=== PATIENT | female | born 1965 | race Caucasian/White ===

== ENCOUNTER → 2016-08-25 | Outpatient (CLI) | payer BC ==
--- NOTE | 2016-08-25 09:32 | WOMENS IMAGING REPORT ---
EXAM DESCRIPTION: BILAT SCREENING MAMMO W/CAD COMPLETED DATE/TIME: 08/25/2016 7:28 am REASON FOR STUDY: Z12.31, ROUTINE SCREENING MAMMO Z12.31 ENCNTR SCREEN MAMMOGRAM FOR MALIGNANT NEOP LASM OF PILO COMPARISON: Multiple since 2007 TECHNIQUE: Standard craniocaudal and mediolateral oblique views of each breast recorded using [employer] l acquisition. LIMITATIONS: None. FINDINGS: RIGHT BREAST MASSES: On the right breast CC view only, lateral to the nipple about 8 cm from the nipple, there is a mass versus superimposed shadows which requires further evaluation with right breast diagnostic ildefonso osynthesis in the craniocaudad and 90 mediolateral orientations, and cone compression in the CC and 90 mediolateral orientations. If this persists, then ultrasound would be required for followup. CALCIFICATIONS: No new or suspicious calcifications. ARCHITECTURAL DISTORTION: None. DEVELOPING DENSITY: None. ASYMMETRY: None noted. OTHER: No other significant findings. LEFT BREAST MASSES: No suspicious masses. CALCIFICATIONS: No new or suspicious calcifications. ARCHITECTURAL DISTORTION: None. DEVELOPING DENSITY: None. ASYMMETRY: None noted. OTHER: No other significant findings. Read with the assistance of CAD. .[facility] - R2 Cenova Version 1.3 .[facility] - R2 Cenova Version 1.3 .[facility] - R2 Cenova Version 2.4 .[facility] [place] - R2 Cenova Version 2.4 .[facility] - R2 Carpet Yarn Winder Operator Version 9.2 IMPRESSION: Right breast CC view only, nodule versus superimposed shadows for which diagnostic tomos ynthesis, and left breast diagnostic ultrasound is recommended No mammographic evidence for malignancy left breast BREAST DENSITY: b. There are scattered areas of fibroglandular density. BIRAD: 0 Incomplete: Needs Additional Imaging Evaluation and/or prior Mammograms for Comparison. RECOMMENDATION: RECOMMENDED FOLLOW-UP: Right breast diagnostic tomosynthesis and ultrasound The patient will be contacted for additional imaging. COMMENT: The patient has been notified of the results by letter per MQSA requirements. Additional no tification policies are in place for contacting patient with suspicious or incomplete findings. Quality ID #[id number]: The [employer] recommends an annual screening mammogram for women aged 40 years or over. This facility utilizes a reminder system to ensure that all patients receive reminder letters, and/or direct phone calls for appointments. This includes reminders for routine scr eening mammograms, diagnostic mammograms, or other Breast Imaging Interventions when appropriate. Th is patient will be placed in the appropriate reminder system. The [employer] (ACR) has developed recommendations for screening MRI of the breast s in certain patient populations, to be used in conjunction with mammography. Breast MRI surveillanc e may be appropriate for women with more than 20% lifetime risk of developing breast cancer as deter mined by genetic testing, significant family history of the disease, or history of mantle radiation f or Hodgkins Disease. ACR Practice Guidelines 2008. TECHNICAL DOCUMENTATION: FINDING NUMBER: (1) ASSESSMENT: (1) JOB ID: [id number] [employer]- All Rights Reserved
== END ==
LOC: WI 08:04
PROVIDERS: ATTEND Specialist
DX: Z12.31 Encounter for screening mammogram for malignant neoplasm of breast (principal); R92.8 Other abnormal and inconclusive findings on diagnostic imaging of breast
CPT/HCPCS: 77067; G0202

== ENCOUNTER → 2016-09-10 | Outpatient (CLI) | payer BC ==
--- NOTE | 2016-09-10 17:15 | WOMENS IMAGING REPORT ---
EXAM DESCRIPTION: 3D DX MAMMO RIGHT UNILAT COMPLETED DATE/TIME: 09/10/2016 9:46 am REASON FOR STUDY: N63, BREAST LUMP N63 UNSPECIFIED LUMP IN BREAST COMPARISON: Multiple since 2007 TECHNIQUE: Exaggerated craniocaudal and 90 oblique images of the breast recorded using digital acqu isition, right breast 90 mediolateral, MLO, X CC tomosynthesis. LIMITATIONS: None. FINDINGS: BREAST: Right MASSES: No suspicious masses. Findings described on screening exam 08/25/2016 are superimposed shadow s. CALCIFICATIONS: No new or suspicious calcifications. ARCHITECTURAL DISTORTION: None. DEVELOPING DENSITY: None. ASYMMETRY: None noted. OTHER: No other significant findings. Read with the assistance of CAD. .[facility] - R2 Cenova Version 1.3 .[facility] Imaging - R2 Cenova Version 1.3 .[facility] - R2 Cenova Version 2.4 .[facility] [place] - R2 Cenova Version 2.4 .[facility] - R2 Manager Corporate Responsibility Version 9.2 IMPRESSION: No mammographic/ tomosynthesis evidence for malignancy right breast BREAST DENSITY: b. There are scattered areas of fibroglandular density. BIRAD: 1 Negative. RECOMMENDATION: RECOMMENDED FOLLOW UP: Please continue yearly bilateral screening mammography in Jul. Consider bilateral screening tomosynthesis. SPECIFIC INTERVENTION/IMAGING/CONSULTATION RECOMMENDED:No additional intervention/ imaging/consultati on needed at this time. COMMUNICATION:Patient notified by letter COMMENT: The patient has been notified of the results by letter per SA requirements. Additional no tification policies are in place for contacting patient with suspicious or incomplete findings. Quality ID #[id number]: The [employer] recommends an annual screening mammogram for women aged 40 years or over. This facility utilizes a reminder system to ensure that all patients receive reminder letters, and/or direct phone calls for appointments. This includes reminders for routine scr eening mammograms, diagnostic mammograms, or other Breast Imaging Interventions when appropriate. Th is patient will be placed in the appropriate reminder system. The [employer] (ACR) has developed recommendations for screening MRI of the breast s in certain patient populations, to be used in conjunction with mammography. Breast MRI surveillanc e may be appropriate for women with more than 20% lifetime risk of developing breast cancer as deter mined by genetic testing, significant family history of the disease, or history of mantle radiation f or Hodgkins Disease. ACR Practice Guidelines 2008. DBT Technology DBT is a type of tomographic mammography. With conventional mammography, overlapping breast tissue ma y make lesions difficult to detect, even with good compression. DBT uses an x-ray tube that rotates a round the breast, taking images at different angles. These images are then combined to create thin sl ices of the breast that the radiologist can view as a 3D reconstruction. The [employer] unit can perform full-field digital mammograms (2D imaging); or DBT (3D imaging); or both, in a combination mode that quickly performs both the mammogram and the tomosynthesis scan while the breast is still compressed. PQRS 6045F: Fluoroscopic imaging is not utilized for breast tomosynthesis. TECHNICAL DOCUMENTATION: FINDING NUMBER: (1) ASSESSMENT: (1) JOB ID: [id number] [email or web address]- All Rights Reserved
== END ==
LOC: WI 13:08
PROVIDERS: ATTEND Specialist
DX: N63 Unspecified lump in breast (principal)
CPT/HCPCS: 77061; G0206

== ENCOUNTER → 2017-09-21 | Outpatient (CLI) | payer BC ==
--- NOTE | 2017-09-21 09:36 | WOMENS IMAGING REPORT ---
EXAM DESCRIPTION: 3D SCREENING MAMMO BILAT COMPLETED DATE/TIME: 09/21/2017 7:38 am REASON FOR STUDY: SCREENING MAMMO Z12.31 ENCNTR SCREEN MAMMOGRAM FOR MALIGNANT NEOPLASM OF PILO COMPARISON: August 2016 and May 2015 TECHNIQUE: Standard craniocaudal and mediolateral oblique views of each breast recorded using digita l acquisition and breast tomosynthesis. LIMITATIONS: None. FINDINGS: No masses, calcifications or architectural distortion. No areas of suspicion. Read with the assistance of CAD. .[facility] - R2 Cenova Version 1.3 .[facility] - R2 Cenova Version 1.3 .[facility] - R2 Cenova Version 2.4 .[facility] R2 Cenova Version 2.4 .[facility] - R2 Gripper Machine Operator Version 9.2 IMPRESSION: NORMAL MAMMOGRAM. BIRADS 1. BREAST DENSITY: b. There are scattered areas of fibroglandular density. BIRAD: 1 NEGATIVE RECOMMENDATION: ROUTINE SCREENING COMMENT: The patient has been notified of the results by letter per SA requirements. Additional no tification policies are in place for contacting patient with suspicious or incomplete findings. Quality ID #[id number]: The [employer] recommends an annual screening mammogram for women aged 40 years or over. This facility utilizes a reminder system to ensure that all patients receive reminder letters, and/or direct phone calls for appointments. This includes reminders for routine scr eening mammograms, diagnostic mammograms, or other Breast Imaging Interventions when appropriate. Th is patient will be placed in the appropriate reminder system. The [employer] (ACR) has developed recommendations for screening MRI of the breast s in certain patient populations, to be used in conjunction with mammography. Breast MRI surveillanc e may be appropriate for women with more than 20% lifetime risk of developing breast cancer as deter mined by genetic testing, significant family history of the disease, or history of mantle radiation f or Hodgkins Disease. ACR Practice Guidelines 2008. DBT Technology DBT is a type of tomographic mammography. With conventional mammography, overlapping breast tissue ma y make lesions difficult to detect, even with good compression. DBT uses an x-ray tube that rotates a round the breast, taking images at different angles. These images are then combined to create thin sl ices of the breast that the radiologist can view as a 3D reconstruction. The [employer] unit can perform full-field digital mammograms (2D imaging); or DBT (3D imaging); or both, in a combination mode that quickly performs both the mammogram and the tomosynthesis scan while the breast is still compressed. PQRS 6045F: Fluoroscopic imaging is not utilized for breast tomosynthesis. TECHNICAL DOCUMENTATION: FINDING NUMBER: (1) ASSESSMENT: (1) JOB ID: [id number] [employer]- All Rights Reserved Reading location - IP/workstation name: [facility]
== END ==
LOC: WI 07:25
PROVIDERS: ATTEND Specialist
DX: Z12.31 Encounter for screening mammogram for malignant neoplasm of breast (principal)
CPT/HCPCS: 77063; 77067

== ENCOUNTER → 2019-01-03 | Outpatient (CLI) | payer BC ==
--- NOTE | 2019-01-03 15:50 | WOMENS IMAGING REPORT ---
EXAM DESCRIPTION: 3D SCREENING MAMMO BILAT COMPLETED DATE/TIME: 01/03/2019 2:42 pm REASON FOR STUDY: Z12.31 SCREENING MAMMO Z12.31 ENCNTR SCREEN MAMMOGRAM FOR MALIGNANT NEOPLASM OF B RE COMPARISON: [id number] EXAM PARAMETERS: Standard craniocaudal and mediolateral oblique views of each breast recorded using digital acquisition and breast tomosynthesis. Read with the assistance of CAD. .[facility] - [employer] Specialty Sales Representative Version 9.2 LIMITATIONS: None. FINDINGS: Findings present which are benign by mammographic criteria. No suspicious masses, calcific ations or architectural distortion. Pertinent benign findings: Fibrocystic change. Benign mammographic findings may include one or more of the following: Smooth masses, popcorn/rim/coa rse calcifications, asymmetries, post-procedure changes, and lesions with long-standing stability. IMPRESSION: BENIGN MAMMOGRAPHIC FINDINGS. BIRADS 2 BREAST DENSITY: b. There are scattered areas of fibroglandular density. BIRAD: ASSESSMENT: 2 BENIGN FINDING(S) RECOMMENDATION: ROUTINE SCREENING COMMENT: The patient has been notified of the results by letter per SA requirements. Additional no tification policies are in place for contacting patient with suspicious or incomplete findings. Quality ID #[id number]: The [employer] recommends an annual screening mammogram for women aged 40 years or over. This facility utilizes a reminder system to ensure that all patients receive reminder letters, and/or direct phone calls for appointments. This includes reminders for routine scr eening mammograms, diagnostic mammograms, or other Breast Imaging Interventions when appropriate. Th is patient will be placed in the appropriate reminder system. TECHNICAL DOCUMENTATION: FINDING NUMBER: (1) ASSESSMENT: (1) JOB ID: [id number] [employer]- All Rights Reserved Reading location - IP/workstation name: [email or web address]
== END ==
LOC: WI 13:40
PROVIDERS: ATTEND Specialist
DX: Z12.31 Encounter for screening mammogram for malignant neoplasm of breast (principal)
CPT/HCPCS: 77063; 77067

== ENCOUNTER → 2020-01-08 | Outpatient (CLI) | payer BC ==
--- NOTE | 2020-01-08 15:33 | WOMENS IMAGING REPORT ---
EXAM DESCRIPTION: 3D SCREENING MAMMO BILAT IMAGES COMPLETED DATE/TIME: 01/08/2020 3:00 pm REASON FOR STUDY: Z12.31 ENCOUNTER FOR SCREENING MAMMOGRAM FOR MALIGNANT NEOPLASM OF BREAST Z12.31 ENCNTR SCREEN MAMMOGRAM FOR MALIGNANT NEOPLASM OF PILO COMPARISON: Priors back to 2013 EXAM PARAMETERS: Standard craniocaudal and mediolateral oblique views of each breast recorded using digital acquisition and breast tomosynthesis. Read with the assistance of CAD. .[facility] - R2 Fire Engine Operator Version 9.2 LIMITATIONS: None. FINDINGS: RIGHT BREAST MASSES: Small mass 12 o'clock about 3 cm deep to the nipple. CALCIFICATIONS: No new or suspicious calcifications. ARCHITECTURAL DISTORTION: None. ASYMMETRY: None noted. OTHER: No other significant findings. LEFT BREAST MASSES: No suspicious masses. CALCIFICATIONS: No new or suspicious calcifications. ARCHITECTURAL DISTORTION: None. ASYMMETRY: None noted. OTHER: No other significant findings. IMPRESSION: Small mass right breast. 0 Incomplete: Needs Additional Imaging Evaluation and/or prior Mammograms for Comparison. BREAST DENSITY: b. There are scattered areas of fibroglandular density. BIRAD: ASSESSMENT: 0 Incomplete: Needs Additional Imaging Evaluation and/or prior Mammograms for C omparison. RECOMMENDATION: RECOMMENDED FOLLOW-UP: Cone compression views and potential ultrasound right breast. The patient will be contacted for additional imaging. COMMENT: The patient has been notified of the results by letter per MQSA requirements. Additional no tification policies are in place for contacting patient with suspicious or incomplete findings. Quality ID #[id number]: The [employer] recommends an annual screening mammogram for women aged 40 years or over. This facility utilizes a reminder system to ensure that all patients receive reminder letters, and/or direct phone calls for appointments. This includes reminders for routine scr eening mammograms, diagnostic mammograms, or other Breast Imaging Interventions when appropriate. Th is patient will be placed in the appropriate reminder system. TECHNICAL DOCUMENTATION: FINDING NUMBER: (1) ASSESSMENT: (1) JOB ID: [id number] 2010 [employer]- All Rights Reserved Reading location - IP/workstation name: [email or web address]
== END ==
LOC: WI 14:40
PROVIDERS: ATTEND Specialist
DX: Z12.31 Encounter for screening mammogram for malignant neoplasm of breast (principal); N63.12 Unspecified lump in the right breast, upper inner quadrant
CPT/HCPCS: 77063; 77067

== ENCOUNTER → 2020-01-10 | Outpatient (CLI) | payer BC ==
--- NOTE | 2020-01-10 10:40 | WOMENS IMAGING REPORT ---
EXAM DESCRIPTION: RIGHT DIAGNOSTIC MAMMO W/CAD; U/S BREAST UNILAT LIMITED IMAGES COMPLETED DATE/TIME: 01/10/2020 10:05 am; 01/10/2020 10:28 am REASON FOR STUDY: N63.0 UNSPECIFIED LUMP IN UNSPECIFIED BREAST; RT BREAST MASS N63.0 UNSPECIFIED [place] MP IN UNSPECIFIED BREAST COMPARISON: 01/08/2020 EXAM PARAMETERS: True lateral and cone compression views. LIMITATIONS: None. FINDINGS: BREAST LATERALITY: right MASSES: Small mass at 12 o'clock persists with cone compression. CALCIFICATIONS: No new or suspicious calcifications. ARCHITECTURAL DISTORTION: None. ASYMMETRY: None noted. OTHER: No other significant findings. Ultrasound demonstrates 4 mm cyst corresponding to the mammographic finding. IMPRESSION: Benign findings. BREAST DENSITY: b. There are scattered areas of fibroglandular density. BIRAD: ASSESSMENT: 2 Benign findings. RECOMMENDATION: RECOMMENDED FOLLOW UP: Birads 1 or 2: The patient should resume routine screening . SPECIFIC INTERVENTION/IMAGING/CONSULTATION RECOMMENDED:No additional intervention/ imaging/consultati on needed at this time. COMMUNICATION:The imaging findings were not discussed with the patient. Her referring provider has be en notified of the findings. COMMENT: The patient has been notified of the results by letter per SA requirements. Additional no tification policies are in place for contacting patient with suspicious or incomplete findings. Quality ID #225: The [employer] recommends an annual screening mammogram for women aged 40 years or over. This facility utilizes a reminder system to ensure that all patients receive reminder letters, and/or direct phone calls for appointments. This includes reminders for routine scr eening mammograms, diagnostic mammograms, or other Breast Imaging Interventions when appropriate. Th is patient will be placed in the appropriate reminder system. TECHNICAL DOCUMENTATION: FINDING NUMBER: (1) ASSESSMENT: (1) JOB ID: [id number] 2010 [employer]- All Rights Reserved Reading location - IP/workstation name: [email or web address]
--- OUTSIDE RECORDS SUMMARY | 2020-01-11 15:13 | XMS REPORT ---
:1965 Author Organization [facility] Address [facility] [place] [address] [place] [address] Care Team Providers Name Role Phone Saul Lopez Primary Care Physician Unavailable John REYNA Attending Clinician Unavailable Allergies, Adverse Reactions, Alerts Allergy Name Allergy Status Severity Reaction(s) Onset Inactive Treat ing Comments Type Date Date Clinician Codeine Codeine Active Derivatives Derivatives Iodine SOLN Iodine SOLN Active Pseudoephedr Pseudoephed Active ine HCl TABS rine HCl TABS Sulfa Drugs Sulfa Drugs Active Medications Ordered Filled Start Stop Current Ordering Indication Dosage Frequency Signature Comments Components Medication Medication Date Date Medication? Clinician (SIG) Name Name Amitriptyli Yes Beni Amitriptyl ne HCl - 10 7-14 John REYNA ine HCl - MG Oral 00:00: 10 MG Oral Tablet 00 Tablet TAKE 1-3 TABLETS AT BEDTIME INSTRUCTED - for headache prevention Quantity: 90 Refills: 5 Beni Lopez MD Start : 0Active Famotidine 2018-02 Yes Beni Famotidine 20 MG Oral 03-28 John REYNA 20 MG Oral Tablet 00:00: Tablet 00 TAKE 1 TABLET twice a day as needed for heartburn Quantity: 60 Refills: 11 Beni Lopez MD Start : 9Active Aspirin 2017-02 No Aspirin Adult Low - Adult Low Strength 81 00:00: Strength MG Oral 00 81 MG Oral Tablet Tablet Chewable Chewable Refills: 0 Start : 8Active Probiotic 2017-02 No Probiotic Oral 03-27 Oral Capsule 00:00: Capsule 00 Refills: 0 Start : 8Active Vitamin 2017-02 No Vitamin B-12 1000 03-27 B-12 1000 MCG Oral 00:00: MCG Oral Tablet 00 Tablet Refills: 0 Start : 8Active Clobetasol 2015-02 No Clobetasol Propionate -15 Propionate 0.05 % 00:00: 0.05 % External 00 External Cream Cream USE ONE applicatio n TO affected AREA TWICE DAILY Quantity: 60 Refills: 0 Start : 6Active Fiber Yes Isabelle Raines Fiber Therapy - Darlyn REYNA Therapy 58.6 % POWD 00:00: 58.6 % 00 POWD USE DIRECTED. Quantity: 1 Refills: 0 Isabelle Santizo MD Start : 5Active Albuterol Yes Beni Q0.25D Albuterol Sulfate HFA 4-17 John REYNA Sulfate 108 (90 00:00: HFA 108 Base) 00 (90 Base) MCG/ACT MCG/ACT Inhalation Inhalation Aerosol Aerosol Solution Solution INHALE 2 PUFFS FOUR TIMES DAILY DIRECTED. Quantity: 1 Refills: 2 Beni Lopez MD Start : 3Active 8.5 GM Inhaler Ibuprofen 2009-02 No Trevon Hodgson Ibuprofen 800 MG Oral 03-28 David REYNA 800 MG Tablet 00:00: Oral 00 Tablet TAKE 1 TABLET 3 TIMES DAILY NEEDED. 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, mild COPD, mild Problem Active Chronic Chronic Problem Active headache headache History of History of Problem Resolve melanoma in melanoma in d situ situ Exposure to Exposure to Problem Active COVID-19 COVID-19 virus virus Procedures Procedure Date / Time Performed Performing Clinician Camille Huston CoVID-19 2019-09-18 00:00:00 CT - Maxillofacial (SINUSES) 2019-09-11 00:00:00 without IV Contrast L - ENT Vitamin D, 25-Hydroxy 2019-08-21 00:00:00 History of Breast biopsy History of Weems's neuroma excision History of Hysterectomy History of Rotator cuff repair History of Excision melanoma Results Test Description Test Time Test Comments Text Results Atomic Results Result Comments CT - Maxillofacial 2019-09-25 15:46:00 ORDERING PROVID ER: Beni (SINUSES) without IV HarrisPERFORMING LOC ATION: Contrast [facility] PhysiciansEX[facility] DESCRIPTION: CT - Maxillofa marlee (SINUSES) without IV Contras tIMAGES COMPLETED DATE/TIME: 020 3:46 pmREASON FOR STUDY: R51Chr onic headacheCOMPARISON: None.TE CHNIQUE: Noncontrast scanning throug h the paranasal sinuses using bone algorithm. Reconstructed M FL images reviewed. All images stored on PACS. Images acquired fo r image guided surgery.All CT scanne rs at this facility use dose modul ation, iterative reconstruction, an d/or weight based dosing when nisreen ropriate to reduce radiation dose to as low as reasonably achievable (ALARA).[facility]: Dose Right [facility]: CareDose [facility]: Dose Right [facility]: Teradose 4D [facility]: Smart TechnologiesRADIATION DOSE: mGy.FINDINGS: NASAL PASSAGE S: Clear. No polyps or masses.OSTEOMEATAL UNITS AND NASOFRONTAL DUCTS: Patent. N o agger nasi or Donna cells.MAXILLA RY SINUSES: Well-pneumatized an d clear. Maxillary sinus outlets are patent.ETHMOID SINUSES: Well-pneumatized and clear.S PHENOID SINUSES: Well-pneumatized an d clear. No sphenoethmoid air cells o r pneumatized pterygoid recess . No pneumatized dorsal sella.FRO NTAL SINUSES: Well-pneumatized an d clear.MASTOID AIR CELLS: Clear.ORBITS: Normal and symmetrical.NASAL SEPTUM: De viation to the right No nasal septal spurs.TEMPOROMANDIBULAR JOIN TS: Normal.TURBINATES: Pneumati zed and enlarged left middle turbinn ate wall. Minimal pneumatizatio n of the right middle turbinate.MUCOPERIOSTEAL THI CKENING: No.MUCOCELE: No.OTHER: No other significant findings.IMPRESS ION: PNEUMATIZATION OF THE MIDDLE TURBINATES -LEFT GREATER JACKSON N RIGHT. SEE ABOVE DISCUSSION. SEPT AL DEVIATION TO THE RIGHT.TECHN ICAL DOCUMENTATION: JOB ID: [id number] ID # [id number]: FIN AL REPORTS WITH DOCUMENTATION O F ONE OR MORE DOSE REDUCTION TECHNIQU ES (E.G., AUTOMATED EXPOSURE CO NTROL, ADJUSTMENT OF THE MA AND/OR KV ACCORDING TO PATIENT SIZE, U SE OF ITERATIVE RECONSTRUCTION MONIQUE HNIQUE)? 2010 [employer]- ALL RIGHTS RESERVEDELECTRONI MICHELLE SIGNED BY: DYLON VINES M.D. SEP 25 2019 4:08 PMREADING LOCATION - IP/WORKSTATION NAME: LUISA MULLINS L - CoVID-19 2019-09-18 15:03:00 Test Item Value Reference Range Comments SARS-CoV-2, MAVERICK (test Not Detected Not Detected Testing wa s performed using the code = 08518-4) bi(R) SARS-Co V-2 test.This test was developed an d its performance characteristicsd etermined by [employer]. Th is test has not beenFDA cleared or approved. This test has been au thorized byFDA under an Emergency Use Authorization (EUA). This test is only authorized for the duration of time the declarationthat circumstances exist justifying the a uthorization ofthe emergency use of in vitro diagnostic tests fordetecti on of SARS-CoV-2 virus and/or bita gnosis of COVID-19infectio n under section 564(b)(1) of the Act, 21 U.S.C.360bbb-3(b )(1), unless the authorization is terminated orrevoked sooner . When diagnostic testing is negat maria fernanda, thepossibility of a false negat maria fernanda result should be consideredin the context of a patient's recent exposures and thepresence of c linical signs and symptoms consist ent withCOVID-19. An individual witho ut symptoms of COVID-19 andwho is not shedding SARS-CoV-2 virus would expect to have anegative ( not detected) result in this assay. [facility] performed at: [BN] [address], [place], [address], , Medical Collections Specialist: Savanna Torres MDXR-Chest(Pa&Lat)2019-08-23 09:33:00ORDERING PROVIDER: Beni LopezPERFORMING LOCATION: Critical access hospitalEX DESCRIPTION: XR-Chest(PaIMAGES COMPLETED DATE/TIME: 08/23/2019 9:33 amREASON FOR STUDY: D86.3Cutaneous sarcoidosisCOMPARISON: 03/04/2008EXAM PARAMETERS: NUMBER OF VIEWS: two viewsTECHNIQUE: Digital Frontal and Lateral radiographic views of the chest acquired.RADIATION DOSE: NALIMITATIONS: noneFINDINGS: LUNGS AND PLEURA: No opacities, masses or pneumothorax. No pleural effusion.MEDIASTINUM AND HILAR STRUCTURES: No masses or contour abnormalities.HEART AND VASCULAR STRUCTURES: Heart normal size. No evidence for failure.BONES: No acute findings.HARDWARE: None in the chest.OTHER: No other significant finding.IMPRESSION: 1. NO SIGNIFICANT INTERVAL CHANGES SINCE THE PRIOR DATED 03/04/2008. NO ACUTE FINDINGS.TECHNICAL DOCUMENTATION: JOB ID: [id number]? 2010 [employer]- ALL RIGHTS RESERVEDELECTRONICALLY SIGNED BY: ISRRAEL GEE AUG 23 2019 9:58 AMREADING LOCATION - IP/WORKSTATION NAME: [id number] 09:05:00 Test Item Value Reference Range Comments Urine Color (test code = Urine Color) Yellow Yellow Urine Clarity (test code = Urine Clear Clear Clarity) Urine Glucose (test code = Urine Negative Negative Glucose) Urine Ketones (test code = Urine Negative Negative Ketones) Urine Bilirubin (test code = Urine Negative Negative Bilirubin) Urine Specific Boomer (test code = 1.025 1.010-1.030 Urine Specific Boomer) Urine Blood (test code = Urine Blood) Trace-intact Negative Urine pH (test code = Urine pH) 7.0 5.0-8.0 Urine Protein (test code = Urine Negative Negative Protein) Urine Urobilinogen (test code = Urine 0.2 E.U./dL 0.2 Urobilinogen) Urine Nitrites (test code = Urine Negative Negative Nitrites) Urine Leukocytes (test code = Urine Negative Negative RBC 0-2, EPI 3-5 Leukocytes) [id number] 09:05:00 Test Item Value Reference Range Comments White Blood Cell (test code = White Blood Cell) 4.4 K/uL 3.5-11.1 Red Blood Cell (test code = Red Blood Cell) 4.34 {M/uL} 3.69 -4.87 Hemoglobin (test code = Hemoglobin) 13.1 g/dL 11.4-14.4 Hematocrit (test code = Hematocrit) 39 % 33-41 Mean Corpuscular Volume (test code = Mean 90.8 fL 79.0-9 5.0 Corpuscular Volume) Mean Corpuscular Hemoglobin (test code = Mean 30.2 pg/mL 27 .0-33.0 Corpuscular Hemoglobin) Mean Corpuscular Hemoglobin Concentration (test 33.2 g/dL 33.5-35.5 code = Mean Corpuscular Hemoglobin Concentration) Red Cell Distribution Width (test code = Red 13.0 % 12. 0-15.0 Cell Distribution Width) Platelet (test code = Platelet) 311 K/uL 130-353 Mean Platelet Volume (test code = Mean Platelet 8.8 fL 7.5-10.7 Volume) Neutrophil Count, absolute (test code = 2.7 K/uL 1.9-7.2 Neutrophil Count, absolute) Neutrophil Count Percentage (test code = 60.1 % 43.0-72 .0 Neutrophil Count Percentage) Lymphocyte Count, absolute (test code = 1.1 K/uL 1.1-2.7 Lymphocyte Count, absolute) Lymphocyte Count Percentage (test code = 24.7 % 17.0-44 .0 Lymphocyte Count Percentage) Monocyte Count, absolute (test code = Monocyte 0.4 K/uL 0 .3-0.8 Count, absolute) Monocyte Count Percentage (test code = Monocyte 9.3 % 4.5-12.4 Count Percentage) Eosinophil Count, absolute (test code = 0.2 K/uL 0.0-0.5 Eosinophil Count, absolute) Eosinophil Count Percentage (test code = 5.4 % 0.7-7.8 Eosinophil Count Percentage) Basophil Count, absolute (test code = Basophil 0.0 K/uL 0 .0-0.1 Count, absolute) Basophil Count Percentage (test code = Basophil 0.5 % 0.2-1.1 Count Percentage) CMP(Complete Metabolic Panel)2019-08-23 09:04:00 Test Item Value Reference Range Comments Glucose (test code = Glucose) 104 mg/dL 74-106 Sodium (test code = Sodium) 137 mmol/L 135-145 Potassium (test code = Potassium) 4.9 mmol/L 3.5-5.3 Chloride (test code = Chloride) 103 mmol/L 98-107 CO2 (test code = CO2) 25 mmol/L 22-30 Creatinine, serum (test code = Creatinine, serum) 0.70 mg/dL 0.10-1.04 Glomerular Filtration Rate (test code = >60 >60 Glomerular Filtration Rate) Glomerular Filtration Rate AA (test code = >60 >60 Glomerular Filtration Rate AA) Blood Urea Nitrogen (test code = Blood Urea 18 mg/dL 7-17 Nitrogen) Calcium (test code = Calcium) 9.2 mg/dL 8.4-10.5 Phosphorus (test code = Phosphorus) 3.3 mg/dL 2.5-4.5 Total Protein (test code = Total Protein) 6.7 g/dL 6.3-8. 2 Albumin (test code = 48064-1) 3.7 g/dL 3.5-5.0 Total Bilirubin (test code = Total Bilirubin) 0.5 mg/dL 0. 2-1.3 Bilirubin, unconj (test code = Bilirubin, unconj) 0.3 mg/dL 0.0-1.1 Bilirubin, Direct (test code = Bilirubin, Direct) 0.2 mg/dL 0.0-0.4 Alkaline Phosphatase (test code = Alkaline 91 U/L 20-15 0 Phosphatase) Alanine Transaminase (test code = Alanine 26 U/L 6-52 Transaminase) Aspartate Aminotransferase (test code = Aspartate 28 U/L 3-36 Aminotransferase) Vitamin D [id number] 09:04:00 Test Item Value Reference Range Comments Vitamin D, total (test code = Vitamin D, total) 32 ng/mL 30-100 L - Calcium/Creatinine [id number] 09:04:00 Test Item Value Reference Range Comments Calcium, Urine (test 14.1 mg/dL Not Estab. code = 83819-1) Creatinine, Urine (test 102.4 mg/dL Not Estab. code = 2161-8) Calcium/Creat.Ratio 138 {mg/g creat} 29-442 (test code = 9321-1) Please no te reference interval change* * [facility] performed at: [] [address], [address], , Medical Collections Specialist: Savanna Torres MDL - [id number] 12:46:00 Test Item Value Reference Range Comments SARS-CoV-2, MAVERICK Not Detected Not Detected Testing was perf ormed using the (test code = bi(R) SARS-Co V-2 test.This test was 88158-8) developed and it s performance characteristicsd etermined by [employer]. Th is test has not beenFDA cleared or approved. This test has been authori zed byFDA under an Emergency Use Au thorization (EUA). This testis only authorized for the duration of time the declarationthat circumstances ex ist justifying the authorization of the emergency use of in vitro diagnos tic tests fordetection of SARS-CoV-2 vi tiffanie and/or diagnosis of COVID-19infec tion under section 564(b)(1) of the Act, 21 U.S.C.360bbb-3(b )(1), unless the authorization is terminated orrevoked sooner. When bita gnostic testing is negative, thepos sibility of a false negative result should be consideredin the context of a patient's recent exposures and th epresence of clinical signs and sympto ms consistent withCOVID-19. An individual without symptoms of COVI D-19 andwho is not shedding SARS-Co V-2 virus would expect to have anegativ e (not detected) result in this a ssay. [facility] performed at: [BN] [address], [address], , Medical Collections Specialist: Savanna Torres MD Assessments Condition Name Status Diagnosis Date Treating Clinici an Encounter for preventive health examination Active Rectal polyp Active COPD, mild Active Deep vein thrombosis (DVT) of other vein of Active left lower extremity Proctalgia Active Encounter for preventive health examination Active Immunization due Active Weems's neuroma of left foot Active GERD (gastroesophageal reflux disease) Active Exposure to COVID-19 virus Active Acute maxillary sinusitis Active Cutaneous sarcoidosis Active Cutaneous sarcoidosis Active Cutaneous sarcoidosis Active GERD (gastroesophageal reflux disease) Active Cutaneous sarcoidosis Active Chronic headache Active COPD, mild Active History of malignant melanoma of skin Active Exposure to COVID-19 virus Active Encounters Start End Encounter Admission Attending Care Care Encounter Date/Time Date/Time Type Type Clinicians Facility Department ID 2019-09-25 2019-09-[address] [facility] [id number] 15:30:00 15:30:00 ; VINCE FAY, ROOM 2019-09-18 2019-09-18 [facility] [id number] 15:25:00 15:25:00 ; [place], Lab 2019-09-11 2019-09-[address] [id number] 14:45:00 14:45:00 ; Beni Lopez MD 2019-08-23 2019-08-[address] [facility] [id number] 09:05:00 09:05:00 ; Betty Huff X-ray 2019-08-23 2019-08-23 Appointment [facility] [id number] 09:05:00 09:05:00 ; Betty Huff Lab 2019-08-23 2019-08-23 Appointment [facility] [id number] 09:05:00 09:05:00 ; Betty Huff, Clinical 2019-08-17 2019-08-17 Appointment John [facility] [id number] 12:00:00 12:00:00 ; Beni Lopez MD 2019-01-26 2019-01-26 Appointment [facility]MERLINE [facility] [id number] 13:30:00 13:30:00 ; Beni Lopez MD 2018-10-17 2018-10-[address] [facility] [id number] 08:30:00 08:30:00 ; Mary Alvarez MD 2018-07-04 2018-07-04 Appointment [facility] [id number] 13:10:00 13:10:00 ; Mary Alvarez MD 2018-06-22 2018-06-22 [facility] [id number] 12:00:00 12:00:00 ; Beni Lopez MD 2018-01-25 2018-01-25 [facility] [id number] 14:15:00 14:15:00 ; Beni Lopez MD Family History Family Member Diagnosis Comments Start Date Stop Date Mother Family history of diabetes mellitus Mother Family history of Cancer Father Family history of Heart attack Father Family history of chronic obstructive pulmonary disease Immunizations Ordered Immunization Filled Immunization Date Status Commen ts Refusal Name Name Reason Influenza, seasonal, 2019-11-22 Completed injectable 00:00:00 Tdap (Boostrix) 2019-01-26 Completed 16:02:00 Influenza, seasonal, 2018-12-24 Completed injectable 00:00:00 influenza, 2018-01-11 Completed injectable, 00:00:00 quadrivalent, contains preservative Afluria 2017-02-02 Completed Intramuscular 00:00:00 Suspension Influenza 2012-12-11 Completed 00:00:00 Influenza A (H1N1) 2009-02-11 Completed [place] Vac SUSP 15:42:00 Influenza Unknown Completed Influenza Unknown Completed Plan of Treatment Planned Activity Planned Date Details Comments Future Scheduled Test [code = ] Social History Smoking Status Start Date Stop Date Never smoked tobacco (finding) Vital Signs Vital Name Observation Time Observation Value Comments Systolic blood pressure 2019-09-11 15:03:00 138 mm[Hg] Diastolic blood pressure 2019-09-11 15:03:00 80 mm[Hg] Weight 2019-09-11 15:03:00 197 [lb_av] Body mass index (BMI) [Ratio] 2019-09-11 15:03:00 30.92 kg/m2 Body temperature 2019-09-11 15:03:00 97.8 [degF] Heart Rate 2019-09-11 15:03:00 68 /min Body temperature 2019-08-17 12:23:00 99 [degF] Heart Rate 2019-08-17 12:23:00 74 /min O2 SAT 2019-08-17 12:23:00 97 % Source: [facility] Discharge Instructions NameDatesDetailsInstructions not documentedNameDatesDetailsInstructions not documented
== END ==
LOC: WI 09:30
PROVIDERS: ATTEND Specialist
DX: N60.01 Solitary cyst of right breast (principal)
CPT/HCPCS: 76642; 77065